=== PATIENT | male | born 1980 | race African-American/Black ===

== ENCOUNTER 2018-06-16 00:49 | Emergency (ER) | payer BC, OTHER ==
[~2018-06-16] VITALS: Ht 180.3 cm; Wt 102.1 kg
--- NOTE | 2018-06-16 01:02 | NUR ---
Pt bib self, pt c/o of tingling sensation in genital area. Pt asymptomatic, here for screening.
[2018-06-16] MEDS ORDERED: AZITHROMYCIN 250 MG TABLET ONE (01:11)
[2018-06-16] MEDS ORDERED: CEFTRIAXONE 500 MG VIAL ONE (01:12)
[2018-06-16] MEDS ORDERED: AZITHROMYCIN 250 MG TABLET PO ONE (01:15)
[2018-06-16] MEDS ORDERED: CEFTRIAXONE 500 MG VIAL IM ONE (01:15)
[2018-06-16] MEDS ORDERED: LIDOCAINE HCL 1% 20 ML VIAL ONE (01:15)
[2018-06-16 01:21] VITALS: BP 123/75
--- NOTE | 2018-06-16 01:21 | NUR ---
Patient discharged to home in stable conditon. Written and verbal after care instructions given. Patient verbalizes understanding of instructions. Pt ambulated out of dept with steady gait.
== END 2018-06-16 01:23 | disposition home or self-care (01) ==
LOC: ER 00:49
DX: N34.2 Other urethritis (principal)
CPT/HCPCS: 96372; 99283; J0696; J3490; A4663; Q0144